=== PATIENT | female | born 1990 | race Two or more races ===

== ENCOUNTER 2023-04-03 18:40 | Emergency (ER) | payer MEDICAID ==
[~2023-04-03] VITALS: Ht 160 cm; Wt 67.0 kg
[2023-04-03 18:40] VITALS: BP 114/92; PULSE 82; RESP 18; O2SAT 97
[~2023-04-03 18:40] MED LIST: ACET500T58 PO; BACDST PO; MAX35OO LEFTEYE; SULF800T23 PO; VALA1TAB34 PO
== END 2023-04-03 23:30 | disposition home or self-care (01) ==
LOC: ER 18:40
DX: R22.31 Localized swelling, mass and lump, right upper limb (principal); S51.811D Laceration without foreign body of right forearm, subsequent encounter; F12.10 Cannabis abuse, uncomplicated; X58.XXXD Exposure to other specified factors, subsequent encounter